=== PATIENT | male | born 1970 | race Caucasian/White ===

== ENCOUNTER → 2016-06-27 | Outpatient (CLI) | payer OTHER | LOC: BMCIMAGING 09:02 | PROVIDERS: ATTEND Internal Medicine Rheumatology | DX: M79.641 Pain in right hand (principal); M79.642 Pain in left hand; M79.671 Pain in right foot; M79.672 Pain in left foot ==

== ENCOUNTER → 2017-10-28 | Outpatient (CLI) | payer OTHER | DX: Z13.828 Encounter for screening for other musculoskeletal disorder (principal); M05.89 Other rheumatoid arthritis with rheumatoid factor of multiple sites ==